=== PATIENT | female | born 1960 | race African-American/Black ===

== ENCOUNTER 2024-10-04 14:02 | Emergency (ER) | payer BC ==
[~2024-10-04] VITALS: Ht 180.3 cm; Wt 86.0 kg
[~2024-10-04 14:02] MED LIST: ATEN-175; GABA100C; HYDR12.54
[2024-10-04 14:03] VITALS: PULSE 87; RESP 15; O2SAT 97
[2024-10-04 14:09] VITALS: BP 150/84; TEMP 37.1; O2SAT 99
== END 2024-10-04 14:15 | disposition left against medical advice (07) ==
LOC: ER 14:02
DX: R11.2 Nausea with vomiting, unspecified (principal); Z53.21 Procedure and treatment not carried out due to patient leaving prior to being seen by health care provider